=== PATIENT | male | born 1970 | race Caucasian/White ===

== ENCOUNTER → 2017-04-25 | Outpatient (CLI) | payer BC | LOC: CFH 14:19 | PROVIDERS: ATTEND Nurse Practitioner Primary Care | DX: Z12.2 Encounter for screening for malignant neoplasm of respiratory organs (principal); F17.200 Nicotine dependence, unspecified, uncomplicated; F90.9 Attention-deficit hyperactivity disorder, unspecified type; R53.83 Other fatigue; Z72.0 Tobacco use; Z87.891 Personal history of nicotine dependence | CPT/HCPCS: G0297 ==